=== PATIENT | female | born 1970 | race Two or more races ===

== ENCOUNTER 2020-12-07 09:46 | Emergency (ER) | payer OTHER ==
[~2020-12-07] VITALS: Ht 170.2 cm; Wt 79.4 kg
[2020-12-07] MEDS ORDERED: ZESTRIL10 M1 (09:54)
== END 2020-12-08 14:09 | disposition home or self-care (01) ==
LOC: ER 09:46
DX: R53.81 Other malaise (principal); R74.8 Abnormal levels of other serum enzymes; Z03.818 Encounter for observation for suspected exposure to other biological agents ruled out